=== PATIENT | male | born 1990 | race Caucasian/White ===

== ENCOUNTER 2021-08-18 13:55 | Emergency (ER) | payer OTHER ==
[~2021-08-18] VITALS: Ht 188 cm; Wt 127.0 kg
[2021-08-18 14:01] VITALS: BP 154/90
--- NOTE | 2021-08-18 14:04 | NUR ---
PT AMBULATED TO ER BED 2 WITH A STEADY GAIT.
--- NOTE | 2021-08-18 14:20 | NUR ---
31 Y/O MALE C/O RIGHT EYE PAIN 6/10 WITH REDNESS X1DAY. PT DENIES RECENT INJURY OR TRAUMA TO THE EYE. PT STATES HE USED PINK EYE DROPS WITH NO RELIEF, REPORTS SOME BLURRED VISION. DENIES FEVER/CHILLS. DENIES N/V. DENIES PMH NKA
--- NOTE | 2021-08-18 14:23 | NUR ---
LAMONT ANGELA AT PT BEDSIDE FOR FURTHER EVALUATION.
[2021-08-18] MEDS: TETRACAINE HCL/PF 0.5% OPTH 4 ML BTL OP ONE (14:42)
[2021-08-18] MEDS: FLUORESCEIN OPTH STRIP 1 MG OP ONE (14:42)
[2021-08-18] MEDS ORDERED: OFLO10SO2 RIGHT EYE (15:06)
[2021-08-18] MEDS ORDERED: NAPR-54 PO (15:06)
[2021-08-18 15:30] VITALS: BP 137/82
--- NOTE | 2021-08-18 15:30 | NUR ---
Patient discharged with v/s stable. Written and verbal after care instructions given FOR BACTERIAL CONJUNCTIVITIS and explained. Patient alert, oriented and verbalized understanding of instructions. Ambulatory with steady gait. All questions addressed prior to discharge. ID band removed. Patient advised to follow up with PMD. Rx of NAPROXEN AND OFLOXACIN given. Patient educated on indication of medication including possible reaction and side effects. Opportunity to ask questions provided and answered.
== END 2021-08-18 15:30 | disposition home or self-care (01) ==
LOC: MED 13:55
DX: H10.89 Other conjunctivitis (principal)
CPT/HCPCS: 99283